=== PATIENT | female | born 1975 | race Caucasian/White ===

== ENCOUNTER 2022-03-28 12:44 | Outpatient (CLI) | payer BC, SELFPAY ==
--- OUTSIDE RECORDS SUMMARY | 2022-03-28 12:46 | XMS_ITS | Encounter Summary ---
:1975 Author Organization [facility] Address [address] [place] [address]. [place] [address] Care Team Providers Name Role Phone Golden Chowdary PA-C Primary Care Provider [phone] Golden Chowdary PA-C Unavailable [phone] Golden Chowdary PA-C Unavailable [phone] Reason for Visit Reason Onset Date Comments Panel Management 09/10/2016 pap Encounter Details Date Type Department Care Team Description 09/10/2016 [facility] Golden Chowdary Panel Management (pap) Clinic [place] DAI N[place]itt [address] [facility], [address] [place] [address] [address] [place] [address] [place], [place] [phone] (Wo rk) [address] [phone] Social History Tobacco Use Types Packs/Day Years Used Date Smoking Tobacco: Former Alcohol Use Standard Drinks/Week Comments Yes 0 (1 standard drink = 0.6 oz pure alcoho l) Sex Assigned at Date Recorded Not on file documented as of this encounter Miscellaneous Notes Telephone Encounter - Lawanda Ramirez - 09/24/2016 9:18 AM CDT 3rd attempt, letter sent. Bud Ramirez Branding Specialist 09/24/16 Telephone Encounter - Elyssa Ramires - 09/17/2016 11:45 AM CDT Second attempt, LM on home number to call back. KAIN Ndiaye Telephone Encounter - Jailyn Gurrola MA - 09/10/2016 1:25 PM CDT Panel Management Review Patient has the following on her problem list: None Composite cancer screening Chart review shows that this patient is due/due soon for the following Pap Smear Summary: Patient is due/failing the following: PAP Action needed: Patient needs office visit for pap. Type of outreach: Phone, left message for patient to call back. Questions for provider review: None Jailyn Gurrola MA Chart routed to Care Team . documented in this encounter Plan of Treatment Not on filedocumented as of this encounter Visit Diagnoses Not on filedocumented in this encounter Care Teams Operational Intelligence Officer Relationship Specialty Start Date End Date Golden Chowdary, PCP - General Physician Stadium Manager - 07/09/16 [facility] Golden Chowdary, PCP - Assigned PCP 10/18/15 08/10/18 DA[place] [id number] DOMINIC HUFFMAN [id number] Golden Chowdary, Assigned PCP 10/18/15 DA[place] [address] DOMINIC HUFFMAN [id number] documented as of this encounter
--- OUTSIDE RECORDS SUMMARY | 2022-03-28 12:46 | XMS_ITS | Clinical Summary ---
:1975 Author Organization [place] [facility] Address [address] [place] [address] Care Team Providers Name Role Phone Golden Chowdary PA-C Primary Care Provider [phone] Allergies Active Allergy Reactions Severity Noted Date Comments Sulfa Drugs 11/07/2015 Hands/lips numb ness Medications Medication Sig Dispensed Refills Start Date End Date Status LYRICA 75 MG capsule 0 06/03/2018 Active cyclobenzaprine Take 1 tablet 30 tablet 1 09/28/2018 Active (FLEXERIL) 10 MG (10 mg) by tabletIndications: Neck mouth 2 times pain daily as needed for muscle spasms Active Problems Problem Noted Date Neuropathy 09/28/2018 Neck pain 09/28/2018 CARDIOVASCULAR SCREENING; LDL GOAL LESS THAN 160 11/06 Immunizations Name Administration Dates Next Due DTAP (<7y) 10/10/1982, 11/25/1978, 1977, 1977, 1975 HepB 12/20/2008, 09/04/2005, 08/14/2004, 07/08/2004 Influenza (H1N1) 04/03/2009 MMR 07/08/2004, 08/26/1978 Poliovirus, inactivated (IPV) 07/08/2004, 10/10/1982, 1978, 1977, 1977, 1977 TD (ADULT, 7+) 12/22/2002, 05/08/2000 TDAP Vaccine (Adacel) 02/17/2006 Varicella Pt Report Hx of 09/10/2016 Varicella/Chicken Pox Family History Medical History Relation Comments Cerebrovascular Disease Father Heart Disease Father Other Cancer Father throat Relation Status Comments Father Alive Mother Alive Social History Tobacco Use Types Packs/Day Years Used Date Smoking Tobacco: Former Smokeless Tobacco: Former Alcohol Use Standard Drinks/Week Comments Yes 0 (1 standard drink = 0.6 oz pure alcoho l) Sex Assigned at Date Recorded Not on file Last Filed Vital Signs Vital Sign Reading Time Taken Comments Blood Pressure 102/66 09/28/2018 4:05 PM CDT Pulse 88 09/28/2018 4:05 PM CDT Temperature 37.3 ??C (99.1 ??F) 09/28/2018 4:05 PM CDT Respiratory Rate 16 09/28/2018 4:05 PM CDT Oxygen Saturation - - Inhaled Oxygen Concentration - - Weight 70.8 kg (156 lb) 09/28/2018 4:05 PM CDT Height 159.4 cm (5' 2.75) 11/07/2015 3:18 PM CDT Body Mass Index 27.85 11/07/2015 3:18 PM CDT Plan of Treatment Health Maintenance Due Date Last Done Comments ADVANCE CARE PLANNING 1975 ANNUAL REVIEW OF HM ORDERS 1975 YEARLY PREVENTIVE VISIT 1975 COVID-19 Vaccine (#1) 1975 HEPATITIS C SCREENING 1995 DTAP/TDAP/TD IMMUNIZATION 02/18/2016 02/17/2006, 12/22/2002 , (9 - Td or Tdap) 05/08/2000, Additional history exists PHQ-2 (once per calendar 06/08/2021 09/28/2018, 11/07/2015 year) INFLUENZA VACCINE (#1) 2022 04/03/2009 IPV IMMUNIZATION Completed 07/08/2004, 10/10/1982, 11/25/1978, Additional history exists HEPATITIS B IMMUNIZATION Completed 12/20/2008, 09/04/2005, 08/14/2004, Additional history exists HIV SCREENING Addressed 09/28/2018 (Declined) Overridden with the intention of not completing the t opic MENINGITIS IMMUNIZATION Aged Out No longe r eligible based on patient 's age to complete this topic PAP Discontinued Pneumococcal Vaccine: Aged Out No longer eligible Pediatrics (0 to 5 Years) based on patient's age and At-Risk Patients (6 to to co mplete this topic 64 Years) Insurance Payer Benefit Plan / Subscriber ID Effective Dates Phone Addre ss Type Group BCBS BCBS OUT OF [id number] 2014-Present [phone] [address] [address] [place] [address] Care Teams Window Unit Air Conditioning Mechanic Relationship Specialty Start Date End Date Golden Chowdary, PCP - General Physician 2Nd Grade Teacher - 07/09/16 PA-C Medical
--- OUTSIDE RECORDS SUMMARY | 2022-03-28 12:46 | XMS_ITS | Encounter Summary ---
:1975 Author Organization [facility] Address [address] [place] [address]. [place] [address] Care Team Providers Name Role Phone Golden Chowdary PA-C Primary Care Provider [phone] Golden Chowdary PA-C Unavailable [phone] Aldair Crawford MD Unavailable Reason for Visit Reason Onset Date Comments Appointment 09/28/2018 Encounter Details Date Type Department Care Team Description 09/28/2018 [facility] Golden Chowdary, Appointment [place] [address] [place] [address] [place] [address] [phone] Social History Tobacco Use Types Packs/Day Years Used Date Smoking Tobacco: Former Smokeless Tobacco: Former Alcohol Use Standard Drinks/Week Comments Yes 0 (1 standard drink = 0.6 oz pure alcoho l) Sex Assigned at Date Recorded Not on file documented as of this encounter Miscellaneous Notes Telephone Encounter - Prabhakar Erazo - 09/28/2018 5:04 PM CDT [facility] Phone Message May a detailed message be left on voicemail: yes Reason for Call: Symptoms or Concerns If patient has red-flag symptoms, warm transfer to triage line Current symptom or concern: Raynaud's Syndrome Symptoms have been present for: several month(s) Has patient previously been seen for this? Yes By [facility] PCP Date: Are there any new or worsening symptoms? Yes: Action Taken: Message routed [facility] Pt would like to be seen in [facility] for this - I explained the review process and that she will get a call for the intake, then at the end of the 3rd week will get a second call from the clinic to discuss. Records are in epic documented in this encounter Plan of Treatment Not on filedocumented as of this encounter Visit Diagnoses Not on filedocumented in this encounter Care Teams Power Hair Clipper Relationship Specialty Start Date End Date Golden Chowdary, PCP - General Physician Final Touch Up Painter - 07/09/16 [facility] Medical Golden Chowdary, Assigned PCP 10/18/15 DAI [address] DOMINIC HUFFMAN [id number] Aldair Crawford MD Assigned PCP 10/03/18 09/28/21 [address] DOMINIC HUFFMAN [id number] documented as of this encounter
--- OUTSIDE RECORDS SUMMARY | 2022-03-28 12:46 | XMS_ITS | Encounter Summary ---
:1975 Author Organization [facility] Address [address] [place] [address]. [place] [address] Care Team Providers Name Role Phone Golden Chowdary PA-C Unavailable [phone] Golden Chowdary PA-C Unavailable [phone] Reason for Visit Reason Onset Date Comments Panel Management 05/28/2016 pap Encounter Details Date Type Department Care Team Description 05/28/[address] [facility] [place] [place] Golden Chowdary Panel Management (pap) Clinic [place] DAI N[place] [id number] [place] [address] [place] [address] [place], [place] [phone] (Wo rk) [address] [phone] Social History Tobacco Use Types Packs/Day Years Used Date Smoking Tobacco: Former Alcohol Use Standard Drinks/Week Comments Yes 0 (1 standard drink = 0.6 oz pure alcoho l) Sex Assigned at Date Recorded Not on file documented as of this encounter Miscellaneous Notes Telephone Encounter - Lawanda Ramirez - 06/13/2016 9:46 AM WIND TURBINE SERVICE TECHNICIAN 3rd attempt, letter sent. Bud Ramirez Tandem Mill Sticker TURBINE SERVICE TECHNICIAN Telephone Encounter - Ivonne Kendall CMA - 06/06/2016 11:02 AM CST 2nd attempt Left message for patient to call the clinic back. Ivonne Kendall CMA TURBINE SERVICE TECHNICIAN Telephone Encounter - Jailyn Gurrola MA - 05/28/2016 11:00 AM CST Panel Management Review Patient has the following on her problem list: None Composite cancer screening Chart review shows that this patient is due/due soon for the following Pap Smear Summary: Patient is due/failing the following: PAP and PHYSICAL Action needed: Patient needs office visit for physical with pap. Type of outreach: Phone, left message for patient to call back. Questions for provider review: None Jailyn Gurrola MA Chart routed to Care Team . TURBINE SERVICE TECHNICIAN documented in this encounter Plan of Treatment Not on filedocumented as of this encounter Visit Diagnoses Not on filedocumented in this encounter Care Teams Tobacco Drying Machine Operator Relationship Specialty Start Date End Date Golden Chowdary PA-C PCP - Assigned PCP 10/18/15 08/10/18 [id number] DOMINIC HUFFMAN [address] Golden Chowdary PA-C Assigned PCP 10/18/15 10/02/18 [address] DOMINIC HUFFMAN [id number] documented as of this encounter
--- OUTSIDE RECORDS SUMMARY | 2022-03-28 12:46 | XMS_ITS | Encounter Summary ---
:1975 Author Organization [facility] Address [address] [place] [address] Care Team Providers Name Role Phone Golden Chowdary PA-C Primary Care Provider [phone] Golden Chowdary PA-C Unavailable [phone] Encounter Details Date Type Department Care Team Description 09/17/2018 Travel Social History Tobacco Use Types Packs/Day Years Used Date Smoking Tobacco: Former Alcohol Use Standard Drinks/Week Comments Yes 0 (1 standard drink = 0.6 oz pure alcoho l) Sex Assigned at Date Recorded Not on file documented as of this encounter Plan of Treatment Not on filedocumented as of this encounter Visit Diagnoses Not on filedocumented in this encounter Care Teams Poultry Eviscerator Relationship Specialty Start Date End Date Golden Chowdary, PCP - General Physician Network Technology Instructor - 07/09/16 DA[facility] Medical Golden Chowdary, Assigned PCP 10/18/15 DAI [address] [place] [address] documented as of this encounter
--- OUTSIDE RECORDS SUMMARY | 2022-03-28 12:46 | XMS_ITS | Encounter Summary ---
:1975 Author Organization [facility] Address [address] [place] [address] Care Team Providers Name Role Phone Golden Chowdary PA-C Primary Care Provider [phone] Golden Chowdary PA-C Unavailable [phone] Encounter Details Date Type Department Care Team Description 09/28/2018 Travel Social History Tobacco Use Types Packs/Day [...] on filedocumented in this encounter Care Teams Head Of Precision Targeting Relationship Specialty Start Date End Date Golden Chowdary, PCP - General Physician Mat Puncher - 07/09/16 DA[facility] Medical Golden Chowdary, Assigned PCP 10/18/15 DAI [address] [place] [address] documented as of this encounter
--- OUTSIDE RECORDS SUMMARY | 2022-03-28 12:46 | XMS_ITS | Encounter Summary ---
:1975 Author Organization [facility] Address [address] [place] [address] Care Team Providers Name Role Phone Golden Chowdary PA-C Primary Care Provider [phone] Aldair Crawford MD Unavailable Reason for Visit Reason Onset Date Comments Referral 10/12/2018 Talon cervantes MD Encounter Details Date Type Department Care Team Description 10/12/2018 Telephone [facility] Aldair Alamo Referral Rheumatology Clinic MD Boris (Talon [place] [address] WINN MAMI Crawford MD) [address] [place] [address] [place] [address] (Wo rk) [address] [phone] Social History Tobacco Use Types Packs/Day Years Used Date Smoking Tobacco: Former Smokeless Tobacco: Former Alcohol Use Standard Drinks/Week Comments Yes 0 (1 standard drink = 0.6 oz pure alcoho l) Sex Assigned at Date Recorded Not on file documented as of this encounter Miscellaneous Notes Telephone Encounter - Veronika Dorsey [facility] - 10/22/2018 10:49 AM CDT Final attempt to reach out to patient without success to complete the New Patient Intake process. Unfortunately, we are not able to move forward until the form is completed. If records have been received, they will be kept until 11/21/18. Anytime after 11/21/18, the patient will have to request those records again. Left a message of this information. Closing the referral request until we hear from the patient. Veronika Dorsey [facility] 10/22/2018 10:49 AM Telephone Encounter - Veronika Dorsey CMA - 10/12/2018 2:42 PM CDT Call was placed to patient regarding the referral without success. Message was left asking patient to call the clinic to discuss the referral. Awaiting a call back from the patient. Veronika Dorsey CMA 10/12/2018 2:43 PM documented in this encounter Plan of Treatment Not on filedocumented as of this encounter Visit Diagnoses Not on filedocumented in this encounter Care Teams Meter Shop Supervisor Relationship Specialty Start Date End Date Golden Chowdary, PCP - General Physician Drill Grinder - 07/09/16 PA-C Medical Aldair Crawford MD Assigned PCP 10/03/18 09/28/21 [address] [place] [address] documented as of this encounter
--- OUTSIDE RECORDS SUMMARY | 2022-03-28 12:46 | XMS_ITS | Encounter Summary ---
:1975 Author Organization [facility] Address [address] [place] [address]. [place] [address] Care Team Providers Name Role Phone Golden Chowdary PA-C Primary Care Provider [phone] Aldair Crawford MD Unavailable Reason for Visit Reason Comments Erroneous encounter-disregard Encounter Details Date Type Department Care Team Description 10/12/2018 [facility] [address] [place] [address] [phone] Social History Tobacco Use Types Packs/Day Years [...] on filedocumented in this encounter Care Teams Senior Actuarial Analyst Relationship Specialty Start Date End Date Golden Chowdary, PCP - General Physician Screw Machine Operator Swiss Type - 07/09/16 DA[facility] Medical Aldair Crawford MD Assigned PCP 10/03/18 09/28/21 [address] [facility] [place] [place] [address] documented as of this encounter
--- OUTSIDE RECORDS SUMMARY | 2022-03-28 12:46 | XMS_ITS | Encounter Summary ---
:1975 Author Organization [facility] Address [address] [place] [address] Care Team Providers Name Role Phone Golden Chowdary PA-C Unavailable [phone] Golden Chowdary PA-C Unavailable [phone] Reason for Visit Reason Onset Date Comments Path Results 11/22/2015 11/21/15 left breast biopsy Encounter Details Date Type Department Care Team Description 11/22/2015 [facility] Cristina Rooney Pat h Results (11/21/15 [facility] RN left breast biopsy) [address] [facility], [address] [place] [address] Social History Tobacco Use Types Packs/Day Years Used Date Smoking Tobacco: Former Alcohol Use Standard Drinks/Week Comments Yes 0 (1 standard drink = 0.6 oz pure alcoho l) Sex Assigned at Date Recorded Not on file documented as of this encounter Miscellaneous Notes Telephone Encounter - Cristina Rooney RN - 11/22/2015 1:47 PM CDT Left voice message for patient to return call regarding appointment on 11/21/15 and my return number:[phone] Patient returned call 11/21 Pathology report reviewed with breast radiologist Dr Bergeron. I informedpatient of results showing benign breast tissue in the 2 areas biopsied. No imaging follow up. Notify your doctor if any breast changes or concerns. Patient states no problems with biopsy site. Questions were answered and my phone number given if she has further questions or concerns. documented in this encounter Plan of Treatment Not on filedocumented as of this encounter Visit Diagnoses Not on filedocumented in this encounter Care Teams Credit Operations Processor Relationship Specialty Start Date End Date Golden Chowdary PA-C PCP - Assigned PCP 10/18/15 08/10/18 [address] DOMINIC HUFFMAN [address] Golden Chowdary PA-C Assigned PCP 10/18/15 10/02/18 [address] DOMINIC HUFFMAN [address] documented as of this encounter
--- OUTSIDE RECORDS SUMMARY | 2022-03-28 12:46 | XMS_ITS | Encounter Summary ---
:1975 Author Organization [facility] Address [address] [place] [address]. [place] [address] Care Team Providers Name Role Phone Golden Chowdary PA-C Primary Care Provider [phone] Golden Chowdary PA-C Unavailable [phone] Reason for Referral Consultation (Routine) - Closed Specialty Diagnoses / Procedures Referred By Contact Refer red To Contact Diagnoses Neuropathy Aldair Crawford MD PHYS [address] [facility]/[place] [address] [place] [address] [place] [address] Phone: [phone] Fax: Referral ID Status Reason Start Date Expiration Date Visits Requ ested Visits Authorized [id number] Closed 09/28/2018 09/28/2019 1 1 Reason for Visit Reason Comments Referral Rheumatology Encounter Details Date Type Department Care Team Description 09/28/2018 Office Visit [facility] Aldair Crawford Neuropath y (Primary Dx); Clinic Tsering Escalante MD Need for prophylactic vaccination with t etanus-diphtheria (Td); [place] [address] [address] [place] [address] Social History Tobacco Use Types Packs/Day Years Used Date Smoking Tobacco: Former Smokeless Tobacco: Former Alcohol Use Standard Drinks/Week Comments Yes 0 (1 standard drink = 0.6 oz pure alcoho l) Sex Assigned at Date Recorded Not on file documented as of this encounter Last Filed Vital Signs Vital Sign Reading Time Taken Comments Blood Pressure 102/66 09/28/2018 4:05 PM CDT Pulse 88 09/28/2018 4:05 PM CDT Temperature 37.3 ??C (99.1 ??F) 09/28/2018 4:05 PM CDT Respiratory Rate 16 09/28/2018 4:05 PM CDT Oxygen Saturation - - Inhaled Oxygen Concentration - - Weight 70.8 kg (156 lb) 09/28/2018 4:05 PM CDT Height - - Body Mass Index 27.85 11/07/2015 3:18 PM CDT documented in this encounter Progress Notes Aldair Crawford MD - 09/28/2018 4:00 PM CDT HPI SUBJECTIVE: Cassie Hill is a 43 year old female who presents to clinic today for the following health issues: Patient would is requesting a referral to Rheumatology 2016 diagnosed with idiopathic neuropathy at [facility], testing didn't reveal cause. Hands and feet, paths down arms and legs tingle. Recently developed white patch on feet (soles) that come and go and these spots would be completely numb. Calls this Raynauds. Has been to see neuro at [facility] and [facility] - extensive workup. Is not sure she's been investigated for leprosy, but feels [facility] did a pretty extensive workup. Is requesting referral to a specific traffic control officer. ROS Physical Exam (G62.9) Neuropathy (primary encounter diagnosis) Comment: does sound like she's had a pretty extensive w/u with [facility], will refer on to the U Plan: RHEUMATOLOGY REFERRAL (Z23) Need for prophylactic vaccination with tetanus-diphtheria (Td) Comment: Plan: las had 3y ago Greater than 50% of this 20 minute visit spent in counseling and coordination of care. RTC prn Aldair Crawford MD documented in this encounter Plan of Treatment Scheduled Referrals Name Type Priority Associated Diagnoses Order S chedule RHEUMATOLOGY REFERRAL Referral Routine Neuropathy Ordere d: 09/28/2018 documented as of this encounter Visit Diagnoses Diagnosis Neuropathy - Primary Mononeuritis of unspecified site Need for prophylactic vaccination with t etanus-diphtheria (Td) Neck pain Cervicalgia documented in this encounter Care Teams Uniform Patrol Police Officer Relationship Specialty Start Date End Date Golden Chowdary, PCP - General Physician Lock Assembler - 07/09/16 DAI Medical Golden Chowdary, Assigned PCP 10/18/15 DAI [address] [facility] [place] [address] documented as of this encounter
--- OUTSIDE RECORDS SUMMARY | 2022-03-28 12:46 | XMS_ITS | Encounter Summary ---
:1975 Author Organization [facility] Address [address] [place] [address]. [place] [address] Care Team Providers Name Role Phone Golden Chowdary PA-C Primary Care Provider [phone] Golden Chowdary PA-C Unavailable [phone] Golden Chowdary PA-C Unavailable [phone] Reason for Visit Reason Onset Date Comments Outreach 10/03/2016 [facility] att 1 Outreach 11/14/2016 Clinic made multiple attempts Encounter Details Date Type Department Care Team Description 10/03/2016 Telephone [facility] Golden Chowdary (PHS att 1); Clinic [place] DAI Nesbitt Outreach (Clinic made [address] [facility], [address] [place] [address] multiple attempts) [address] [place] [address] [place], [place] [phone] (Wo rk) [address] [phone] Social History Tobacco Use Types Packs/Day Years Used Date Smoking Tobacco: Former Alcohol Use Standard Drinks/Week Comments Yes 0 (1 standard drink = 0.6 oz pure alcoho l) Sex Assigned at Date Recorded Not on file documented as of this encounter Miscellaneous Notes Telephone Encounter - Alyce Zhou - 11/14/2016 2:41 PM CDT Clinic made multiple attempts Telephone Encounter - Lyndsay Hernandez - 10/03/2016 4:49 PM CDT 10/03/2016 Call Regarding Preventive Health Screening Cervical/PAP and Physical Attempt 1 Message on voicemail Comments: Outreach Apprentice Pattern Maker JCC documented in this encounter Plan of Treatment Not on filedocumented as of this encounter Visit Diagnoses Not on filedocumented in this encounter Care Teams Transit Mechanic Relationship Specialty Start Date End Date Golden Chowdary, PCP - General Physician Electrical Parts Reconditioner - 07/09/16 PAPauletteC Medical Golden Chowdary, PCP - Assigned PCP 10/18/15 08/10/18 DAI [address] DOMINIC HUFFMAN [id number] Golden Chowdary, Assigned PCP 10/18/15 DAI [address] DOMINIC HUFFMAN [id number] documented as of this encounter
--- OUTSIDE RECORDS SUMMARY | 2022-03-28 12:46 | XMS_ITS | Encounter Summary ---
:1975 Author Organization [facility] Address [address] [place] [address]. [place] [address] Care Team Providers Name Role Phone Golden Chowdary PA-C Primary Care Provider [phone] Aldair Crawford MD Unavailable Reason for Visit Reason Onset Date Comments Panel Management 10/29/2018 Encounter Details Date Type Department Care Team Description 10/29/2018 Telephone [facility] Aldair Crawford, Panel Management Tsering FIGUEROA [address] [place] [address] [place] [address] [place] [address] [phone] Social History Tobacco Use Types Packs/Day Years Used Date Smoking Tobacco: Former Smokeless Tobacco: Former Alcohol Use Standard Drinks/Week Comments Yes 0 (1 standard drink = 0.6 oz pure alcoho l) Sex Assigned at Date Recorded Not on file documented as of this encounter Miscellaneous Notes Telephone Encounter - Gwendolyn Soria CMA - 12/02/2018 11:11 AM CDT 2nd attempt, Left message to call clinic back. Gwendolyn Soria MA Telephone Encounter - Gwendolyn Soria CMA - 10/29/2018 2:54 PM CDT Panel Management Review Patient has the following on her problem list: None Composite cancer screening Chart review shows that this patient is due/due soon for the following Pap Smear Summary: Patient is due/failing the following: PAP and PHYSICAL Action needed: Patient needs office visit for pap an physical. Type of outreach: Phone, left message for patient to call back. Questions for provider review: None Gwendolyn Soria MA Chart routed to Care Team . documented in this encounter Plan of Treatment Not on filedocumented as of this encounter Visit Diagnoses Not on filedocumented in this encounter Care Teams Emr Specialist Relationship Specialty Start Date End Date Golden Chowdary, PCP - General Physician Concrete Placement Equipment Operator - 07/09/16 PA-C Medical Aldair Crawford MD Assigned PCP 10/03/18 09/28/21 [address] [address] [address] documented as of this encounter
--- OUTSIDE RECORDS SUMMARY | 2022-03-28 12:46 | XMS_ITS | Encounter Summary ---
:1975 Author Organization [facility] Address [address] [place] [address] Care Team Providers Name Role Phone Golden Chowdary PA-C Unavailable [phone] Golden Chowdary PA-C Unavailable [phone] Reason for Visit Reason Onset Date Comments Panel Management 02/21/2016 pap Encounter Details Date Type Department Care Team Description 02/21/2016 Telephone [facility] None [place] Management (pap) [address], [address] [place] [address] Social History Tobacco Use Types Packs/Day Years Used Date Smoking Tobacco: Former Alcohol Use Standard Drinks/Week Comments Yes 0 (1 standard drink = 0.6 oz pure alcoho l) Sex Assigned at Date Recorded Not on file documented as of this encounter Miscellaneous Notes Telephone Encounter - Lawanda Ramirez - 06/11/2016 8:25 AM CHIEF CLIENT OFFICER 3rd attempt, letter sent. Bud Ramirez Hot Sealing Machine Operator F CLIENT OFFICER Telephone Encounter - Lawanda Ramirez - 06/04/2016 12:32 PM CHIEF CLIENT OFFICER 2nd attempt, left message to call clinic. Bud Ramirez Hot Sealing Machine Operator F CLIENT OFFICER Telephone Encounter - Elyssa Ramires - 05/28/2016 11:16 AM CST First attempt, TB on home number. Elyssa Ramires XRT F CLIENT OFFICER Telephone Encounter - Golden Chowdary PA-C - 05/15/2016 11:17 AM CHIEF CLIENT OFFICER Please send PAP reminder. No need to add HM for mammo. rae Che F CLIENT OFFICER Telephone Encounter - Jailyn Gurrola MA - 02/21/2016 2:45 PM CDT Panel Management Review Patient has the following on her problem list: None Composite cancer screening Chart review shows that this patient is due/due soon for the following Pap Smear Summary: Patient is due/failing the following: PAP and PHYSICAL Action needed: Patient needs office visit for physical with pap. Type of outreach: None, routed to provider for review. Questions for provider review: She has had a mammogram for breast lump, do we need to add Mammogram to her health maintenance now? And if so how often does she need one. Jailyn Gurrola MA Chart routed to Provider . documented in this encounter Plan of Treatment Not on filedocumented as of this encounter Visit Diagnoses Not on filedocumented in this encounter Care Teams Health Care Sanitary Technician Relationship Specialty Start Date End Date Golden Chowdary PA-C PCP - Assigned PCP 10/18/15 08/10/18 [id number] DOMINIC HUFFMAN [id number] Golden Chowdary PA-C Assigned PCP 10/18/15 10/02/18 [address] DOMIN[address] HUFFMAN [id number] documented as of this encounter
--- OUTSIDE RECORDS SUMMARY | 2022-03-28 12:47 | XMS_ITS | Encounter Summary ---
:1975 Author Organization [facility] Address [address] [place] [address]. [place] [address] Care Team Providers Name Role Phone Golden Chowdary PA-C Unavailable [phone] Golden Chowdary PA-C Unavailable [phone] Reason for Visit (Routine) - Closed Specialty Diagnoses / Procedures Referred By Contact Refer red To Contact Radiology / Radiology. Diagnoses Prev 11yrs ago [facility] Procedures MA DIAGNOSTIC BILAT W/ JOVAN [address], [address] [place] [address] Phone: Fax: Referral ID Status Reason Start Date Expiration Date Visits Requ ested Visits Authorized [id number] Closed 11/08/2015 11/07/2016 1 1 Encounter Details Date Type Department Care Team Description 11/12/2015 Hospital Encounter [facility] Golden Chowdary Breast lump [facility] DAI Nesbitt [address], [address] [facility] [address] [place] [address] [place], [place] [phone] (Wo rk) [phone] [phone] Social History Tobacco Use Types Packs/Day Years Used Date Smoking Tobacco: Former Alcohol Use Standard Drinks/Week Comments Yes 0 (1 standard drink = 0.6 oz pure alcoho l) Sex Assigned at Date Recorded Not on file documented as of this encounter Plan of Treatment Not on filedocumented as of this encounter Procedures Procedure Name Priority Date/Time Associated Comments Diagnosis MA DIAGNOSTIC Routine 11/12/2015 3:37 PM Breast lump Results for this BILATERAL W/ JOVAN CDT procedure are in the results section. documented in this encounter Results MA Diagnostic Bilateral w/Jovan (11/12/2015 3:37 PM CDT) Anatomical Region Laterality Modality Breast Bilateral Mammography Specimen (Source) Anatomical Location Collection Method / Collectio n Time Received Time / Laterality Volume Addenda Addendum by Andrey Bergeron MD on 12/24/2015 7:21 AM CDT ALESSANDRO HILL [id number] The original report on this patient was dictated by myself. ?? Prior mammograms from [facility] dated 08/25/12 have been made available for comparison. Findings: No significant interval change on mammography. Subsequent biopsies were based on ultras ound findings. ANDREY BERGERON MD (Date of Addendum: 12/06 7:19 AM) ?? ANDREY BERGERON MD Addendum by Andrey Bergeron MD on 12/24/2015 7:21 AM CDT ALESSANDRO HILL [id number] The original report on this patient was dictated by myself. ?? Prior mammograms from [facility] dated 08/25/12 have been made available for comparison. Findings: No significant interval change on mammography. Subsequent biopsies were based on ultras ound findings. ANDREY BERGERON MD (Date of Addendum: 12/06 7:19 AM) ?? ANDREY BERGERON MD Addendum by Andrey Bergeron MD on 11/15/2015 3:36 PM CDT ALESSANDRO HILL [id number] The original report on this patient was dictated by myself. ?? Prior outside mammogram and right breast ultrasound from 08/25/2012 from [facility] have been made available for comparison. The right breast mass was previously doc umented on ultrasound and appears not significantly changed, consi dered benign. The two left-sided masses were not defin itely visualized previously and require biopsy. IMPRESSION: Category 4. Suspicious findi ngs. Biopsy should be considered. RECOMMENDATION: Biopsy of two left breas t masses. ANDREY BERGERON MD (Date of Addendum: 11/14 2:15 PM) ANDREY BERGERON MD Addendum by Andrey Bergeron MD on 11/15/2015 3:36 PM CDT ALESSANDRO H[facility] [id number] The original report on this patient was dictated by myself. ?? Prior outside mammogram and right breast ultrasound from 08/25/2012 from [facility] have been made available for comparison. The right breast mass was previously doc umented on ultrasound and appears not significantly changed, consi dered benign. The two left-sided masses were not defin itely visualized previously and require biopsy. IMPRESSION: Category 4. Suspicious findi ngs. Biopsy should be considered. RECOMMENDATION: Biopsy of two left breas t masses. ANDREY BERGERON MD (Date of Addendum: 11/14 2:15 PM) ANDREY BERGERON MD Impressions 11/12/2015 4:32 PM CDT IMPRESSION: BI-RADS CATEGORY: 0 - Need Additional Imaging Evaluation and/or Prior Mammograms for Comparison RECOMMENDED FOLLOW-UP: Obtain Prior Exam for Comparison ANDREY BERGERON MD Narrative 11/12/2015 4:32 PM CDT DIAGNOSTIC MAMMOGRAM BILATERAL DIGITAL w/CAD w/TOMOSYNTHESIS; ULTRASOUND BILATERAL BREAST ??11/12/2015. HISTORY: Pain and lumpiness in the later al left breast for approximately 6-7 months. COMPARISON: Prior mammograms at [place], [place], not available at the time of this exam. BREAST DENSITY: Heterogeneously dense FINDINGS: No mammographic or sonographic abnormality identified in the region of pain and lumpiness at 1-2 o'cl ock in the left breast, 12 cm from the nipple. Any further evaluation should be based on clinical findings and clinical suspicion. Left: Two nodular circumscribed asymmetr ies are identified in the lower left breast on mammography. Ultras ound at 5 o'clock 6 cm from the nipple demonstrates a 0.6 x 0.3 x 0. 5 cm hypoechoic circumscribed parallel mass. A second similar-appearin g mass is identified at 5:30, 3 cm from the nipple and measures 0.8 x 0.4 x 0.8 cm. Right: One circumscribed asymmetry is lo cated in the upper medial right breast on mammography. Ultrasound at 1:30/2 o'clock 6 cm from the nipple in the right breast demonstra angela a 0.8 x 0.5 x 0.9 cm smoothly marginated hypoechoic mass, cor responding with the mammographic abnormality. All three masses have benign characteris tics, but are indeterminate. Comparison with prior mammograms would b e helpful to confirm stability. If mammograms cannot be obtai conner and/or stability confirmed, ultrasound-guided biopsy is r ecommended of all three lesions. Golden Chowdary PA-C IMG MAMMOGRAPHY ORDERABLES documented in this encounter Visit Diagnoses Diagnosis Breast lump Lump or mass in breast documented in this encounter Care Teams Risk Reduction Counselor Relationship Specialty Start Date End Date Golden Chowdary PA-C PCP - Assigned PCP 10/18/15 08/10/18 [id number] DOMINIC HUFFMAN [id number] Golden Chowdary PA-C Assigned PCP 10/18/15 10/02/18 [address] DOMINIC HUFFMAN [address] documented as of this encounter
--- OUTSIDE RECORDS SUMMARY | 2022-03-28 12:47 | XMS_ITS | Encounter Summary ---
:1975 Author Organization [facility] Address [address] [place] [address]. [place] [address] Care Team Providers Name Role Phone Golden Chowdary PA-C Unavailable [phone] Golden Chowdary PA-C Unavailable [phone] Reason for Visit (Routine) - Closed Specialty Diagnoses / Procedures Referred By Contact Refer red To Contact Radiology / Diagnoses EPIC order, Rh Ultrasound Breast Radiology. Procedures US BREAST BX CORE NDL ADD LT [address], [address] [place] [address] Phone: Referral ID Status Reason Start Date Expiration Date Visits Requ ested Visits Authorized [id number] Closed 11/16/2015 11/15/2016 1 1 Encounter Details Date Type Department Care Team Description 11/21/[address] [facility] Golden Chowdary Mass of multiple [place] Breast DAI Nesbitt sites of left breast Center [address] [address] [address], [address] [place] [address] Social History Tobacco Use Types Packs/Day Years Used Date Smoking Tobacco: Former Alcohol Use Standard Drinks/Week Comments Yes 0 (1 standard drink = 0.6 oz pure alcoho l) Sex Assigned at Date Recorded Not on file documented as of this encounter Plan of Treatment Not on filedocumented as of this encounter Procedures Procedure Name Priority Date/Time Associated Diagnosis Comme nts US BREAST BIOPSY Routine 11/21/2015 9:24 AM Mass of multiple R esults for this CORE NEEDLE, EA CDT sites of left breast proc edure are in ADDL LESION LEFT the results section. documented in this encounter Results Us Breast Biopsy Core Needle, Ea Addl Lesion Left (11/21/2015 9:24 AM CDT) Anatomical Region Laterality Modality Breast Ultrasound Specimen (Source) Anatomical Location Collection Method / Collectio n Time Received Time / Laterality Volume Addenda Addendum by Moises Hogue MD on 11/07 7:10 AM CDT Pathology results: Benign. ?. See fu ll path report. Results are concordant with imaging. Recommendation: Routine screening. MOISES HOGUE MD Narrative 11/21/2015 9:41 AM CDT US BREAST BIOPSY CORE NEEDLE LEFT, US BREAST BIOPSY CORE NEEDLE, EA ADDL LESION LEFT, MA POST PROCEDURE LEFT 11/21/2015 9:24 AM HISTORY: ??Unspecified lump in breast PREPROCEDURE DIAGNOSIS: Indeterminant br east lesion CONSENT: The risks and benefits were dis cussed with the patient. The patient agreed to have the procedure. TECHNIQUE: Using sterile technique, loca l anesthesia was given using 5cc of 1% Lidocaine. Ultrasound guidance , and a 14 gauge needle was used to biopsy the 2 indeterminant sites in the left breast.. Five biopsy samples of each suspicious lesion were obtained for the lab. A Coil was placed at the 5:30, 3 cm biopsy site. A ribbon clip was placed at the 5:00 6 cm biopsy site. Pos tprocedural mammogram shows the marker in position. Less than 5cc of blood loss during the p rocedure. No significant pain at the end of the procedure. The patient left the department in satisfactory condition. POSTPROCEDURE DIAGNOSIS: Indeterminant b reast lesion MOISES HOGUE MD Procedure Note Moises Hogue MD - 11/21/2015Formatt ing of this note might be different from the original. US BREAST BIOPSY CORE NEEDLE LEFT, US BR EAST BIOPSY CORE NEEDLE, EA ADDL LESION LEFT, MA POST PROCEDURE LEFT 11/21/2015 9:24 AM HISTORY: Unspecified lump in breast PREPROCEDURE DIAGNOSIS: Indeterminant br east lesion CONSENT: The risks and benefits were dis cussed with the patient. The patient agreed to have the procedure. TECHNIQUE: Using sterile technique, loca l anesthesia was given using 5cc of 1% Lidocaine. Ultrasound guidance , and a 14 gauge needle was used to biopsy the 2 indeterminant sites in the left breast.. Five biopsy samples of each suspicious lesion were obtained for the lab. A Coil was placed at the 5:30, 3 cm biopsy site. A ribbon clip was placed at the 5:00 6 cm biopsy site. Pos tprocedural mammogram shows the marker in position. Less than 5cc of blood loss during the p rocedure. No significant pain at the end of the procedure. The patient left the department in satisfactory condition. POSTPROCEDURE DIAGNOSIS: Indeterminant b reast lesion MOISES HOGUE MD Golden Chowdary PA-C IMG US ORDERABLES documented in this encounter Visit Diagnoses Diagnosis Mass of multiple sites of left breast Lump or mass in breast documented in this encounter Care Teams Homeland Security Program Specialist Relationship Specialty Start Date End Date Golden Chowdary PA-C PCP - Assigned PCP 10/18/15 08/10/18 [id number] DOMINIC HUFFMAN [id number] Golden Chowdary PA-C Assigned PCP 10/18/15 10/02/18 [id number] DOMINIC HUFFMAN [id number] documented as of this encounter
--- OUTSIDE RECORDS SUMMARY | 2022-03-28 12:47 | XMS_ITS | Clinical Summary ---
:1975 Author Organization [facility] [place] [address] Care Team Providers Name Role Phone Marcie Nation PA-C Primary Care Provider Allergies Active Allergy Reactions Severity Noted Date Comments Sulfa (Sulfonamide Antibiotics) *Unknown 6 Hands/lips numbness Medications Medication Sig Dispensed Refills Start Date End Date Status zolpidem (AMBIEN) 5 Take 5 mg by mouth 0 01/27/2020 Active mg tablet at bedtime if needed. cyclobenzaprine Take 10 mg by mouth 0 05/18/2020 Active (FLEXERIL) 10 mg at bedtime if tablet needed. pregabalin (LYRICA) Take 75 mg by mouth 0 Active 75 mg capsule 2 times daily. acetaminophen Take 500-1,000 mg 0 Active (TYLENOL EXTRA by mouth every 6 STRGTH) 500 mg tablet hours if needed (pain). Max acetaminophen dose: 4000mg in 24 hrs. ondansetron (ZOFRAN Place 1 tablet on 30 Tablet 0 08/18/2020 Active ODT) 4 mg the tongue every 6 disintegrating hours if needed. tabletIndications: Nausea sennosides (SENNA) Take 1-2 tablets by 30 Tablet 0 08/18/2020 Active 8.6 mg mouth 2 times daily tabletIndications: if needed. Constipation, unspecified constipation type HYDROmorphone Take one-half to 30 Tablet 0 09/01/2020 Active (DILAUDID) 4 mg one and one-half tabletIndications: tablets (2-6 mg) by Acute post-operative mouth every 4 hours pain if needed for Pain. methocarbamoL Take 1 Tablet (750 30 Tablet 0 09/01/2020 Active (ROBAXIN) 750 mg mg) by mouth every tabletIndications: 6 hours if needed. Acute post-operative pain HYDROcodone-acetamino Take 1 Tablet by 10 Tablet 0 08/18/2021 Active phen (NORCO) 5-325 mg mouth every 6 hours per if needed for Pain. 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 Not asked How many drinks containing alcohol do you have on a typical Not asked day when you are drinking? How often do you have six or more drinks on one occasion? No t asked Comment: Social 08/29/2020 Sex Assigned at Date Recorded Not on file Obstetrics History Last Filed Vital Signs Vital Sign Reading Time Taken Comments Blood Pressure 146/94 08/18/2021 11:15 AM CDT Pulse 109 08/18/2021 11:15 AM CDT Temperature 36.8 ??C (98.2 ??F) 08/18/2021 11:15 AM CDT Respiratory Rate 20 08/18/2021 11:15 AM CDT Oxygen Saturation 98% 08/18/2021 11:15 AM CDT Inhaled Oxygen Concentration - - Weight 93.4 kg (206 lb) 08/18/2021 11:15 AM CDT Height 160 cm (5' 3) 08/18/2021 11:15 AM CDT Body Mass Index 36.49 08/18/2021 11:15 AM CDT Plan of Treatment Health Maintenance Due Date Last Done Comments Tdap 1988 Depression screening for age 12+ 1989 BMI (ht and wt on same day) for age 18+ 1995 Hepatitis C screening for age 18-79 1995 Tetanus booster 1997 Pap test for age 21-65 1998 COVID-19 vaccine series (2 - Booster for [place] 04/17/2021 02/20/2021 series) Influenza for age 9-49 02/06/2022 Medical Devices Implanted Type Area Thread Puller Device Shelf Model / Identifier Expiration Serial / Lot Date Stent Uret [id number] Contour - [id number] Left: BSC Urolo gy [id number] / Implanted: Qty: 1 on 08/13/2020 by Soren Mitchell MD at [facility] Ureter / [id number] Results Not on filefrom Last 3 Months Insurance Payer Benefit Plan / Subscriber ID Effective Dates Phone Addre ss Type Group BLUE CROSS BLUE CROSS OF [id number] 2021-Present [address] [address] [place] [id number] (Home) W [phone] [place], [place] (Work) [phone] Advance Directives Latest Code Status on File Code Status Date Activated Date Inactivated Comments Full Code 08/30/2020 10:05 AM 09/01/2020 4:15 PM Code Status Discussion: Not Discussed Full Code 08/13/2020 2:08 AM 08/18/2020 4:43 PM Code Status Discussion: Discussed Care Teams Dragline Operator Helper Relationship Specialty Start Date End Date Marcie Nation, WILFREDOC PCP - General Physician Optical Glass Etcher 08/13/20 [address] [place], [place] [id number]
--- OUTSIDE RECORDS SUMMARY | 2022-03-28 12:47 | XMS_ITS | Encounter Summary ---
:1975 Author Organization [facility] Address [address] [place] [address]. [place] [address] Care Team Providers Name Role Phone Golden Sol PA-C Unavailable [phone] Golden Sol PA-C Unavailable [phone] Reason for Visit (Routine) - Closed Specialty Diagnoses / Procedures Referred By Contact Refer red To Contact Radiology / Diagnoses EPIC order, Rh Ultrasound Breast Radiology. Procedures US BREAST BX CORE NEEDLE LEFT [address], [address] [place] [address] Phone: Referral ID Status Reason Start Date Expiration Date Visits Requ ested Visits Authorized [id number] Closed 11/16/2015 11/15/2016 1 1 Encounter Details Date Type Department Care Team Description 11/21/2015 Hospital Encounter [facility] Bud Solis Mass of multiple [place] Breast DAI Nesbitt sites of left breast Center [id number] [address], [address] [place] [phone] Social History Tobacco Use Types Packs/Day Years Used Date Smoking Tobacco: Former Alcohol Use Standard Drinks/Week Comments Yes 0 (1 standard drink = 0.6 oz pure alcoho l) Sex Assigned at Date Recorded Not on file documented as of this encounter Discharge Instructions Discharge Cristina Hale RN - 11/21/2015 9:52 AM CDT After Your Breast Biopsy Bleeding or bruising: Slight bruising is normal. If you bleed through the bandage, put direct pressure on the breast. If you are still bleeding after 20 minutes, call the doctor who ordered the exam. Bandages: Keep your bandage in place until tomorrow morning. Do not get it wet. Leave the tape in place for two days. On the second day, cover it with a Band-Aid. Activity: You may shower the morning after the exam. No heavy activity (lifting, vacuuming) for 24 hours. Discomfort: Wear your bra overnight to support the breast. You may take Tylenol (acetaminophen) for pain. If you had a stereotactic of MR-directed biopsy, you may take aspirin or ibuprofen (Advil, Motrin) the morning after your biopsy, unless your doctor tells you not to. Infection: Infection is rare. Symptoms include fever, redness, increasing pain and fluid draining from the biopsy site. If you have any of these symptoms, please call the doctor who ordered your exam. Results: Results may take up to three business days. If you have not heard your results in three days, {CALL [phone] In rare cases, we may need to do another biopsy. Call the doctor who ordered your exam if: ?? You have bleeding that lasts more than 20 minutes. ?? You have pain that cannot be controlled. ?? You have signs of infection (fever, redness, drainage or other signs). ?? You have not had your results within three days. Nurse navigator: Our nurse navigator is here to answer your questions and help you set up future clinic visits. Please call [phone] Thank you for choosing [facility]. Please call us if you have questions or concerns about your biopsy. documented in this encounter Plan of Treatment Not on filedocumented as of this encounter Procedures Procedure Name Priority Date/Time Associated Diagnosis Comme nts US BREAST BIOPSY Routine 11/21/2015 9:24 AM Mass of multiple R esults for this CORE NEEDLE LEFT CDT sites of left breast pro cedure are in the results section. SURGICAL PATHOLOGY Routine 11/21/2015 9:13 AM Res ults for this EXAM CDT procedure are i n the results section. documented in this encounter Results US Breast Biopsy Core Needle, 1St Lesion Left (11/21/2015 9:24 AM CDT) Anatomical Region Laterality Modality Breast Left Ultrasound Specimen (Source) Anatomical Location Collection Method [...] b reast lesion MOISES HOGUE MD Golden Sol PA-Eduarda IMG US ORDERABLES Surgical Path Exam (11/21/2015 9:13 AM CDT) Component Value Ref Test Analysis Performed Pathologis t Range Method Time At Signature Copath Patient Name: ALESSANDRO HILL PATH Report MR#: [id number] Specimen #: [id number] Collected: 11/21/2015 Received: 11/21/2015 Reported: 11/22/2015 12:51 Ordering Phy(s): GOLDEN SOL SPECIMEN(S): A: Left ultrasound guided breast needle biopsy, 5:00, 6cm FN B: Left ultrasound guided breast needle biopsy, 5:30, 3cm FN FINAL DIAGNOSIS: A: Breast, left, 5:00, 6 cm from nipple, ultrasound guided n eedle core biopsy. - Adipose tissue only. ??No breast epithelial elements ident ified to evaluate. - No microcalcifications identified. - See microscopic description. B: Breast, left, 5:30, 3 cm from nipple, ultrasound guided n eedle core biopsy. - Small focus suggestive of fibroadenoma. - No microcalcifications identified. - Negative for atypia and malignancy. - See microscopic description. Electronically signed out by: Moises Armstrong M.D. CLINICAL HISTORY: Left breast mass, index of suspicion-low to intermediate. ?? 5:00 area of 0.6 x 0.3 x 0.5 cm. ??5:30 area of 0.8 x 0.4 x 0.8 cm. GROSS: A: ??The specimen is received in formalin labeled with the p atient's name, identifying information and left breast ultrasound bi opsy, 5:00, 6 cm FN. ??It consists of multiple friable luke fibrofatty t issue fragments, aggregating to 0.7 x 0.5 x 0.4 cm. ??Submitted en tirely in 1 block. B: ??The specimen is received in formalin labeled with the p atient's name, identifying information and left breast ultrasound bi opsy, 5:30, 3 cm FN. ??It consists of two luke-yellow fibrofatty tissue cores admixed with smaller fragments, aggregating to 1.5 x 0.3 x 0.2 cm. ? ?Submitted entirely in 1 block. (Dictated by: Marques Rosario 11/21/2015 1 1:47 AM) MICROSCOPIC: A: Initial levels show only adipose tissue. ??Additional cali per recut slide levels were also evaluated and are similar. ??No breas t epithelial elements are seen to evaluate. ??No specific lesion is ident ified. Clinical and imaging correlation is required to determine wh ether the samples are agency sales representative of the area of interest. B:. ??There are a few small fragments suggestive of fibroade noma. ??The majority of the biopsy sample does not show specific finding s. ??Clinical and imaging correlation is required to determine whether the samples are agency sales representative of the area of interest. Case internally consulted with an additional pathologist who concurs. CPT Codes: A: 41991-IG8 B: 46135-BP6 TESTING LAB LOCATION: [address] ??[address] COLLECTION SITE: Client: [facility] Location: RHBCUS (R) Specimen Anatomical Collection Method Collection Time Receive d Time (Source) Location / / Volume Laterality Specimen from 11/21/2015 9:13 AM 11/21/19 16 breast CDT 11:03 AM CDT (specimen) Golden DUMONT Performing Organization Address City/State/ZIP Code Phon e Number COPATH documented in this encounter Visit Diagnoses Diagnosis Mass of multiple sites of left breast Lump or mass in breast documented in this encounter Administered Medications Inactive Administered Medications - up to 3 most recent administrations Medication Order MAR Action Action Date Dose Rate Site Lidocaine 1 % injection 12 mL Given 11/21/2015 9:24 AM CDT 12 mLs 12 mL, Subcutaneous, ONCE, On Thu11/21/15 at 0900, For 1 dose documented in this encounter Care Teams Account Manager Forest [employer] Relationship Specialty Start Date End Date Golden Sol PA-C PCP - Assigned PCP 5/12/16 3/5/19 [id number] EDGARD REDMOND, DOMINIC [id number] Golden Sol PA-C Assigned PCP 10/18/15 10/02/18 [id number] DOMINIC HUFFMAN [id number] documented as of this encounter
--- OUTSIDE RECORDS SUMMARY | 2022-03-28 12:47 | XMS_ITS | Encounter Summary ---
:1975 Author Organization [facility] Address [address] [place] [address]. [place] [address] Care Team Providers Name Role Phone Golden Chowdary PA-C Unavailable [phone] Golden Chowdary PA-C Unavailable [phone] Reason for Visit Reason Onset Date Comments Results 11/13/2015 Mammogram Encounter Details Date Type Department Care Team Description 11/13/2015 Telephone [facility] Golden Chowdary Result s (Mammogram) Clinic [place] DAI Nesbitt [id number] [place] [address] [address] [place] [address] [place], [place] [phone] (Wo rk) [address] [phone] Social History Tobacco Use Types Packs/Day Years Used Date Smoking Tobacco: Former Alcohol Use Standard Drinks/Week Comments Yes 0 (1 standard drink = 0.6 oz pure alcoho l) Sex Assigned at Date Recorded Not on file documented as of this encounter Miscellaneous Notes Telephone Encounter - Radha Garcia RN - 11/15/2015 4:12 PM CDT Andrey Bergeron MD ?? Jumana Nov 15, 2015 ??3:36:51 PM CDT ? ALESSANDRO HILL [id number] ?? The original report on this patient was dictated by myself.? Prior outside mammogram and right breast ultrasound from 08/25/2012 from [facility] have been made available for comparison. ?? The right breast mass was previously documented on ultrasound and appears not significantly changed, considered benign. ?? The two left-sided masses were not definitely visualized previously and require biopsy. ?? IMPRESSION: Category 4. Suspicious findings. Biopsy should be considered. ?? RECOMMENDATION: Biopsy of two left breast masses. ?? ANDREY BERGERON MD (Date of Addendum: 11/15/2015 2:15 PM) ?? ANDREY BERGERON MD ? Andrey Bergeron MD ?? Jumana Nov 15, 2015 ??3:36:51 PM CDT Patient returned phone call. Information just finished reporting. Patient notified. She will call the breast center. Orders placed. Radha Garcia RN Telephone Encounter - Radha Garcia RN - 11/13/2015 5:43 PM CDT Notes Recorded by Golden Chowdary PA-C on 11/13/2015 at 3:31 PM Can we call to see where she is at with this. ??Either needs follow up appointment or to obtain prior mammograms. IMPRESSION: BI-RADS CATEGORY: 0 - Need Additional Imaging Evaluation and/or Prior Mammograms for Comparison ?? RECOMMENDED FOLLOW-UP: Obtain Prior Exam for Comparison Telephone Encounter - Jailyn Gurrola MA - 11/13/2015 5:25 PM CDT LMTCB to clinic. Re: mammogram results. Please see note from Golden. Jailyn Gurrola MA documented in this encounter Plan of Treatment Not on filedocumented as of this encounter Results Us Breast Biopsy Core Needle, Ea Addl Lesion Left (11/21/2015 9:24 AM CDT) Anatomical Region Laterality Modality Breast Ultrasound Specimen (Source) Anatomical Location Collection Method / Collectio n Time Received Time / Laterality Volume Addenda Addendum by Durga Hogue MD on 11/07 7:10 AM CDT Pathology results: Benign. ?. See fu ll path report. Results are concordant with imaging. Recommendation: Routine screening. DURGA HOGUE MD Narrative 11/21/2015 9:41 AM CDT [...] condition. POSTPROCEDURE DIAGNOSIS: Indeterminant b reast lesion DURGA HOGUE MD Procedure Note Durga Hogue MD - 11/21/2015Formatt ing of this [...] condition. POSTPROCEDURE DIAGNOSIS: Indeterminant b reast lesion DURGA HOGUE MD Golden Chowdary PA-C IMAntonio US ORDERABLES US Breast Biopsy Core Needle, 1St Lesion Left (11/21/2015 9:24 AM CDT) Anatomical Region Laterality Modality Breast Left Ultrasound Specimen (Source) Anatomical Location Collection Method / Collectio n Time Received Time / Laterality Volume Addenda Addendum by Durga Hogue MD on 11/07 7:10 AM CDT Pathology results: Benign. ?. See fu ll path report. Results are concordant with imaging. Recommendation: Routine screening. DURGA HOGUE MD Narrative 11/21/2015 9:41 AM CDT [...] condition. POSTPROCEDURE DIAGNOSIS: Indeterminant b reast lesion DURGA HOGUE MD Procedure Note Durga Hogue MD - 11/21/2015Formatt ing of this [...] condition. POSTPROCEDURE DIAGNOSIS: Indeterminant b reast lesion DURGA HOGUE MD Golden Chowdary PA-C IMG US ORDERABLES documented in this encounter Visit Diagnoses Diagnosis Mass of multiple sites of left breast - Primary Lump or mass in breast Mass of multiple sites of left breast Lump or mass in breast Mass of multiple sites of left breast Lump or mass in breast documented in this encounter Care Teams Block Cuber Relationship Specialty Start Date End Date Golden Chowdary PA-C PCP - Assigned PCP 10/18/15 08/10/18 [id number] DOMINIC HUFFMAN [id number] Golden Chowdary PA-C Assigned PCP 10/18/15 10/02/18 [id number] DOMINIC HUFFMAN [id number] documented as of this encounter
--- OUTSIDE RECORDS SUMMARY | 2022-03-28 12:47 | XMS_ITS ---
:1975 Author Care Team Providers Name Role Phone AMY SAMSON FONTENOT Primary Care Provider [phone] Allergies Code Code System Name Reaction Severity Status Onset Sulfa (Sulfonamide Antibiotics) ? ? Active ? Medications Name Status Start Date Stop Date ? ? amitriptyline 10 mg tablet Active ? Not a vailable TAKE 1 TABLET ORALLY EVERY DAY AT BEDTIME. amitriptyline 25 mg tablet Active ? Not a vailable TAKE 1 TABLET BY MOUTH DAILY AT BEDTIME. amoxicillin 875 mg tablet Active ? Not av ailable azithromycin 250 mg tablet Active ? Not a vailable TAKE 1-2 TABLETS BY MOUTH DIRECTED. 2 TABLETS ON DAY 1 THEN 1 TABLET DAILY FOR 4 MORE DAYS benzonatate 100 mg capsule Active ? Not a vailable TAKE 1 TABLET BY MOUTH 3 TIMES A DAY NEEDED cephalexin 500 mg capsule Active ? Not av ailable ciprofloxacin 250 mg tablet Active ? Not available codeine 10 mg-guaifenesin 100 mg/5 mL oral liquid Active ? Not available TAKE 5 ML BY MOUTH EVERY 6 HOURS cyclobenzaprine 10 mg tablet Active ? Not available TAKE 1 TABLET BY MOUTH 3 TIMES DAILY NEEDED Enema Disposable 19 gram-7 gram/118 mL Active ? Not available 59 ML RECTALLY ONCE. ADMINISTER HALF THE ENEMA AT 6PM THE DAY PRIOR TO SURGERY erythromycin 500 mg tablet Active ? Not a vailable 1 TABLET ORALLY PER PACKAGE DIRECTIONS. TAKE 1 TABLET AT 1PM, 3PM, AND 7PM THE DAY PRIOR TO SURGERY estradiol 2 mg tablet Active ? Not availa ble TAKE 1 TABLET BY MOUTH DAILY Gentle Laxative (bisacodyl) 5 mg tablet,delayed release Active ? Not available 1 TABLET,DELAYED RELEASE (DR/EC) ORALLY ONCE. TAKE 2 TABLETS AT 1PM THE DAY PRIOR TO SURGERY hers 20ml antiageaz lo Active ? Not avail able Apply 1 pump to face nightly hydrocodone 5 mg-acetaminophen 325 mg tablet Active ? Not available TAKE 1-2 TABLETS BY MOUTH EVERY 4 HOURS NEEDED FOR PAIN. hydromorphone 2 mg tablet Active ? Not av ailable hydromorphone 4 mg tablet Active ? Not av ailable levofloxacin 250 mg tablet Active ? Not a vailable TAKE 1 TABLET BY MOUTH EVERY DAY methocarbamol 750 mg tablet Active ? Not available neomycin 500 mg tablet Active ? Not avail able TAKE 1 TABLET BY MOUTH AT 1PM, 3PM, AND 7PM THE DAY PRIOR TO SANCHEZ RGERY ondansetron 4 mg disintegrating tablet Active ? Not available ondansetron 8 mg disintegrating tablet Active ? Not available TAKE 1 TABLET,DISINTEGRATING ORALLY GERMAIN RY 8 HOURS NEEDED FOR NAUSEA AND VOMITING. phentermine 37.5 mg tablet Active ? Not a vailable TAKE 1 TABLET BY MOUTH DAILY prednisone 20 mg tablet Active ? Not avai lable TAKE 1 TABLET BY MOUTH 2 TIMES A DAY pregabalin 75 mg capsule Active ? Not lynnette ilable TAKE 1 CAPSULE BY MOUTH 3 TIMES A DAY Purelax 17 gram/dose oral powder Active ? Not available TAKE 4 CAPFULS (68 GRAMS) IN 32 OZ OF GATORADE AT 1PM THE DAY PRIOR TO SURGERY triamcinolone acetonide 0.1 % topical cream Active ? Not available APPLY TOPICALLY 2 TIMES DAILY NEEDED FOR ITCHING. Problems None recorded. Procedures Date Name Performed by ? 09/11/2020 XR, Kidney + Ureter + Bladder Informatio n not available 09/20/2020 CT, Urogram Information not avai lable 09/18/2021 NM, Kidney Scan, W/ Vascular Flow + Abbo tt [facility] (Radiology) Function, Single, [employer] [address] [place], [place] [address] (Work Place) Results Lab Results Date Name Specimen Result Interpretation Description Value Range Status Address ? 09/18/2021 Urinalysis, ? pH-Status 6.0 ? ? [facility]: [address] [place] [address] 09/18/2021 Urinalysis, ? No observation ? ? ? Dipstick recorded. Past Encounters 09/18/2021 Hydronephrosis Soren Crooks MD: [address], [address] [place] [phone], Ph. 10/29/2020 Hydronephrosis Soren Crooks MD: [address] [place] [address], Ph. Social History Tobacco Smoking Status Never Smoker Vaccine List None recorded. Plan of Care Reminders Provider Appointments None recorded. ? ? Lab None recorded. ? ? Referral None recorded. ? ? Procedures None recorded. ? ? Surgeries None recorded. ? ? Imaging None recorded. ? ? Vitals 09/18/2021 02:40PM ESTABLISHED 10 Height Weight BMI 5 ft 3 in 188 lbs 33.3 kg/m2 10/29/2020 11:20AM ESTABLISHED 10 Height Weight BMI 5 ft 3 in 188 lbs 33.3 kg/m2 09/11/2020 01:50PM ESTABLISHED 10 Height Weight BMI 5 ft 3 in 188 lbs 33.3 kg/m2
--- OUTSIDE RECORDS SUMMARY | 2022-03-28 12:47 | XMS_ITS | Encounter Summary ---
:1975 Author Organization [facility] Address [address] [place] [address] Care Team Providers Name Role Phone Golden Chowdary PA-C Unavailable [phone] Golden Chowdary PA-C Unavailable [phone] Reason for Visit Reason Comments New Patient Breast Problem Encounter Details Date Type Department Care Team Description 11/07/2015 Office Visit [facility] Golden Chowdary Breast lump (Primary Dx); Clinic [place] DAI Nesbitt Tick bite [place] [address] [facility], [address] [phone] (Wo rk) [address] [phone] Social History Tobacco Use Types Packs/Day Years Used Date Smoking Tobacco: Former Alcohol Use Standard Drinks/Week Comments Yes 0 (1 standard drink = 0.6 oz pure alcoho l) Sex Assigned at Date Recorded Not on file documented as of this encounter Last Filed Vital Signs Vital Sign Reading Time Taken Comments Blood Pressure 100/56 11/07/2015 3:18 PM CDT Pulse 72 11/07/2015 3:18 PM CDT Temperature 37.5 ??C (99.5 ??F) 11/07/2015 3:18 PM CDT Respiratory Rate 20 11/07/2015 3:18 PM CDT Oxygen Saturation - - Inhaled Oxygen Concentration - - Weight 72.1 kg (159 lb) 11/07/2015 3:18 PM CDT Height 159.4 cm (5' 2.75) 11/07/2015 3:18 PM CDT Body Mass Index 28.39 11/07/2015 3:18 PM CDT documented in this encounter Progress Notes Golden Chowdary PA-C - 11/07/2015 9:55 AM CDT HPI SUBJECTIVE: Alessandro Hill is a 40 year old female who presents to clinic today for the following health issues: BREAST LUMP/MASS ?? Duration: 2014 ?? Description (location/character/radiation): has had pain since May. Recently found lump on left breast ?? Intensity: mild, moderate ?? Accompanying signs and symptoms: pain is waking her up in the middle of the night, ?? History (similar episodes/previous evaluation): None ?? Precipitating or alleviating factors: None ?? Therapies tried and outcome: self breast exam, Alessandro is here as a new patient with breast pain and a lump that she has noticed over the past months. She has been watching it for several menstrual cycles but it has not gone away. It is painful. She has had similar fibrocystic changes in her breasts before. Waking at night when rolling over with pain. No discharge. Stopped caffeine. No FH breast cancer. Maybe menstrual correlation but can't tell for sure. PROBLEMS TO ADD ON... Noticed a possible tick bite on her leg. Did not see a tick but was in [place] at a cabin over [facility]. Concerned because the area is red. Problem list and histories reviewed & adjusted, as indicated. Additional history: as documented Problem list, Medication list, Allergies, and Medical/Social/Surgical histories reviewed in [facility] andupdated as appropriate. ROS: Constitutional, HEENT, cardiovascular, pulmonary, gi and gu systems are negative, except as otherwise noted. OBJECTIVE: BP 100/56 mmHg Pulse 72 Temp(Src) 99.5 ??F (37.5 ??C) (Oral) Resp 20 Ht 5' 2.75 (1.594 m) Wt 159 lb (72.122 kg) BMI 28.39 kg/m2 ? No Body mass index is 28.39 kg/(m^2). GENERAL: healthy, alert and no distress BREAST: no palpable axillary masses or adenopathy and fibrocystic changes both- left upper outer quad with possible large collection of fibrocystic changes appreciated MS: no gross musculoskeletal defects noted, no edema SKIN: no suspicious lesions or rashes and erythematous papule - left hip- consistent with insect bite, no evidence of central clearing or infection today PSYCH: mentation appears normal, affect normal/bright Diagnostic Test Results: none ASSESSMENT/PLAN: 1. Breast lump - MA Diagnostic Bilateral w/Jovan; Future 2. Tick bite - continue to observe for any signs of infection or redness becoming larger surrounding the insect bite. She will follow up if this occurs. Golden Chowdary PA-C [facility] Physical Exam documented in this encounter Nursing Notes Jailyn Gurrola MA - 11/07/2015 3:21 PM CDT Chief Complaint Patient presents with ??? New Patient ??? Breast Problem Initial BP 100/56 mmHg Pulse 72 Temp(Src) 99.5 ??F (37.5 ??C) (Oral) Resp 20 Ht 5' 2.75 (1.594 m) Wt 159 lb (72.122 kg) BMI 28.39 kg/m2 ? No Estimated body mass index is 28.39 kg/(m^2) as calculated from the following: Height as of this encounter: 5' 2.75 (1.594 m). Weight as of this encounter: 159 lb (72.122 kg). BP completed using cuff size: regular Jailyn Gurrola MA documented in this encounter Plan of Treatment Not on filedocumented as of this encounter Results MA Diagnostic Bilateral w/Jovan (11/12/2015 3:37 PM CDT) Anatomical Region Laterality Modality Breast Bilateral Mammography Specimen (Source) Anatomical Location Collection Method / Collectio n Time Received Time / Laterality Volume Addenda Addendum by Andrey Bergeron MD on 12/24/2015 7:21 AM CDT ALESSANDRO HILL [id number] The original report on this patient was dictated by myself. ?? Prior mammograms from [facility] dated 08/25/12 have been made available for comparison. Findings: No significant interval change on mammography. Subsequent biopsies were based on ultras ound findings. ANDREY BERGERON MD (Date of Addendum: 12/06:19 AM) ?? ANDREY BERGERON MD Addendum by Andrey Bergeron MD on 12/24/2015 7:21 AM T ALESSANDRO HILL [id number] The original report on this patient was dictated by myself. ?? Prior mammograms from [facility] dated 08/25/12 have been made available for comparison. Findings: No significant interval change on mammography. Subsequent biopsies were based on ultras ound findings. ANDREY BERGERON MD (Date of Addendum: 12/06 7:19 AM) ?? ANDREY BERGERON MD Addendum by Andrey Bergeron MD on 11/15/2015 3:36 PM T ALESSANDRO HILL [id number] The original report on this patient was dictated by myself. ?? Prior outside mammogram and right breast ultrasound from 08/25/2012 from [facility] have been made available for comparison. The [...] Andrey Bergeron MD on 11/15/2015 3:36 PM T ALESSANDRO HILL [id number] The original report on this patient was dictated by myself. ?? Prior outside mammogram and right breast ultrasound from 08/25/2012 from [facility] have been made available for comparison. The [...] approximately 6-7 months. COMPARISON: Prior mammograms at [place], [place], not available at the time of [...] this encounter Visit Diagnoses Diagnosis Breast lump - Primary Lump or mass in breast Tick bite Other, multiple, and unspecified sites, insect bite, nonvenomous, without mention of infection Breast lump Lump or mass in breast documented in this encounter Care Teams Sugar Trucker Relationship Specialty Start Date End Date Golden Chowdary PA-C PCP - Assigned PCP 5/12/16 3/5/19 [id number] EDGARD REDMOND, DOMINIC [phone] Golden Chowdary PA-C Assigned PCP 10/18/15 10/02/18 [id number] DOMINIC HUFFMAN [id number] documented as of this encounter
--- OUTSIDE RECORDS SUMMARY | 2022-03-28 12:47 | XMS_ITS | Encounter Summary ---
:1975 Author Organization [facility] Address [address] [place] [address]. [place] [address] Care Team Providers Name Role Phone Golden Chowdary PA-C Unavailable [phone] Golden Chowdary PA-C Unavailable [phone] Reason for Visit (Routine) - Closed Specialty Diagnoses / Procedures Referred By Contact Refer red To Contact Radiology / Radiology. Diagnoses post clip [facility] Procedures MA POST PROCEDURE LEFT [address], [address] [place] [address] Phone: Fax: Referral ID Status Reason Start Date Expiration Date Visits Requ ested Visits Authorized [id number] Closed 11/16/2015 11/15/2016 1 1 Encounter Details Date Type Department Care Team Description 11/21/2015 Hospital Encounter [facility] Golden Chowdary Mass of multiple [facility] sites of left breast Center [id number] [address], [address] [place], [place] [id number] Social History Tobacco Use Types Packs/Day Years Used Date Smoking Tobacco: Former Alcohol Use Standard Drinks/Week Comments Yes 0 (1 standard drink = 0.6 oz pure alcoho l) Sex Assigned at Date Recorded Not on file documented as of this encounter Plan of Treatment Not on filedocumented as of this encounter Procedures Procedure Name Priority Date/Time Associated Diagnosis Comme nts MA POST PROCEDURE Routine 11/21/2015 9:37 AM Mass of multiple Results for this LEFT CDT sites of left breast procedu re are in the results section. documented in this encounter Results MA Post Procedure Left (11/21/2015 9:37 AM CDT) Anatomical Region Laterality Modality Breast Left Mammography Specimen (Source) Anatomical Location Collection Method [...] MOISES HOGUE MD Golden Chowdary PA-C IMG MAMMOGRAPHY ORDERABLES documented in this encounter Visit Diagnoses Diagnosis Mass of multiple sites of left breast Lump or mass in breast documented in this encounter Care Teams Cfd Engineer Relationship Specialty Start Date End Date Golden Chowdary PA-C PCP - Assigned PCP 10/18/15 08/10/18 [id number] [address] [place] [id number] Golden Chowdary PA-C Assigned PCP 10/18/15 10/02/18 [id number] [place] [id number] documented as of this encounter
--- OUTSIDE RECORDS SUMMARY | 2022-03-28 12:47 | XMS_ITS | Continuity of Care Document ---
:1975 Author Organization [employer] Address [address] [place] [address] Insurance Providers Payer Plan Claims Claims Policy Group Relation Employer Guarantor Guarant or Guarantor Guarantor Address Phone Number Number Name Address Ph one BCBS BCBS [address] tel:[phone] Self Cassie Mejia 1975 [phone] [facility], [phone] [id number] BLUE BLUE [address] Carlitos Mejia 1975 [phone] [address], [facility], [phone] [facility] [address] [place] [address] Problems Condition ICD9 code ICD10 code SNOMED code Start Date End Date Status Encounter for Z13.228 screening for other metabolic disorders Encounter for Z12.31 Admitt ing screening mammogram for malignant neoplasm of breast Results Test Value / Unit Interpretation Reference Range Comp. Metabolic Panel (14)[[id number]]?Collected: 10/17/2021 06:53 PM?Specimen Received: 05:00 AM? Glucose [876945] 102 mg/dL H 65-99 mg/dL BUN [760927] 14 mg/dL Normal 6-24 mg/dL Creatinine [041989] 0.86 mg/dL Normal 0.57-1.00 mg /dL eGFR [216025] 85 mL/min/1.73 Normal >59 mL/min/1.73 BUN/Creatinine Ratio [677502] 16 Normal 9- 23 Sodium [923371] 140 mmol/L Normal 134-144 mmol/L Potassium [247287] 4.3 mmol/L Normal 3.5-5.2 mmol/ L Chloride [198027] 100 mmol/L Normal 96-106 mmol/L Carbon Dioxide, Total [580411] 23 mmol/L Normal 2 0-29 mmol/L Calcium [816975] 9.5 mg/dL Normal 8.7-10.2 mg/dL Protein, Total [799183] 7.1 g/dL Normal 6.0-8.5 g/dL Albumin [060321] 4.3 g/dL Normal 3.8-4.8 g/dL Globulin, Total [517983] 2.8 g/dL Normal 1.5-4.5 g/dL A/G Ratio [443270] 1.5 Normal 1.2-2.2 Bilirubin, Total [333056] 0.4 mg/dL Normal 0.0-1. 2 mg/dL Alkaline Phosphatase [056130] 85 IU/L Normal 44 -121 IU/L AST (SGOT) [208052] 18 IU/L Normal 0-40 IU/L ALT (SGPT) [491527] 16 IU/L Normal 0-32 IU/L Lipid Panel[082724]?Collected: 10/17/2021 06:53 PM?Specimen Received: 10/17/2021 05:00 AM? Cholesterol, Total [238269] 210 mg/dL H 100- 199 mg/dL Triglycerides [574810] 91 mg/dL Normal 0-149 mg/ dL HDL Cholesterol [666535] 60 mg/dL Normal >39 mg/ dL VLDL Cholesterol Liam [821282] 16 mg/dL Normal 5- 40 mg/dL LDL Chol Calc ([facility]) [507345] 134 mg/dL H 0-9 9 mg/dL Hemoglobin A1c[880114]?Collecte d: 10/17/2021 06:53 PM?Specimen Received: 10/17/2021 05:00 AM? Hemoglobin A1c [949698] 5.6 % Normal 4.8-5.6 % . Prediabetes: 5.7 - 6.4 Diabetes: >6.4 Glycemic control for adults with diabetes: 7.0 Allergies, adverse reactions, alerts No known allergies and adverse reactions Medications No administered medications reported Vital Signs No vital signs reported Social History No smoking Hx information available
--- OUTSIDE RECORDS SUMMARY | 2022-03-28 12:47 | XMS_ITS | Encounter Summary ---
:1975 Author Organization [facility] Address [address] [place] [address]. [place] [address] Care Team Providers Name Role Phone Golden Chowdary PA-C Unavailable [phone] Golden Chowdary PA-C Unavailable [phone] Reason for Visit (Routine) - Closed Specialty Diagnoses / Procedures Referred By Contact Refer red To Contact Radiology / Diagnoses Prev 11yrs ago [facility] Ultrasound Breast Radiology. Procedures US BREAST LT LMT 1-[address] QUAD [address], [address] [place] [address] Phone: Referral ID Status Reason Start Date Expiration Date Visits Requ ested Visits Authorized [id number] Closed 11/08/2015 11/07/2016 1 1 Encounter Details Date Type Department Care Team Description 11/12/2015 Hospital Encounter [facility] Golden Chowdary Breast lump [facility] DAI Nesbitt [address], [address] [facility] [address] [place] [address] [place], [place] [phone] (Wo rk) [address] [phone] Social History Tobacco Use Types Packs/Day Years Used Date Smoking Tobacco: Former Alcohol Use Standard Drinks/Week Comments Yes 0 (1 standard drink = 0.6 oz pure alcoho l) Sex Assigned at Date Recorded Not on file documented as of this encounter Plan of Treatment Not on filedocumented as of this encounter Procedures Procedure Name Priority Date/Time Associated Diagnosis Comme nts US BREAST BILATERAL Routine 11/12/2015 3:48 PM Breast lump Re sults for this LIMITED 1-3 CDT procedure are i n QUADRANTS the results section. documented in this encounter Results US Breast Bilateral Limited 1-3 Quadrants (11/12/2015 3:48 PM CDT) Anatomical Region Laterality Modality Breast Bilateral Ultrasound Specimen (Source) Anatomical Location Collection Method / Collectio n Time Received Time / Laterality Volume Addenda Addendum by Andrey Bergeron MD on 12/24/2015 7:21 AM CDT [facility] [id number] The original report on this patient was dictated by myself. ?? Prior mammograms from [facility] dated 08/25/12 have been made available for comparison. Findings: No significant interval change on mammography. Subsequent biopsies were based on ultras ound findings. ANDREY BERGERON MD (Date of Addendum: 12/06 7:19 AM) ?? ANDREY BERGERON MD Addendum by Andrey Bergeron MD on 12/24/2015 7:21 AM CDT ALESSANDRO H[facility] [id number] The original report on this patient was dictated by myself. ?? Prior mammograms from [facility] dated 08/25/12 have been made available for comparison. Findings: No significant interval change on mammography. Subsequent biopsies were based on ultras ound findings. ANDREY BERGERON MD (Date of Addendum: 12/06 7:19 AM) ?? ANDREY BERGERON MD Addendum by Andrey Bergeron MD on 11/15/2015 3:36 PM CDT [facility] [id number] The original report on this patient was dictated by myself. ?? Prior outside mammogram and right breast ultrasound from 08/25/2012 [facility] have been made available for comparison. [...] on 11/15/2015 3:36 PM CDT ALESSANDRO H[facility] [id number] The original report on this patient was dictated by myself. ?? Prior outside mammogram and right breast ultrasound from 08/25/2012 from [facility] have been made available for comparison. [...] approximately 6-7 months. COMPARISON: Prior mammograms at [place], [place], not available at the time of [...] all three lesions. Golden Chowdary PA-C IMG US ORDERABLES documented in this encounter Visit Diagnoses Diagnosis Breast lump Lump or mass in breast documented in this encounter Care Teams Internist Medical Doctor Md Relationship Specialty Start Date End Date Golden Chowdary PA-C PCP - Assigned PCP 10/18/15 08/10/18 [id number] DOMINIC HUFFMAN [id number] Golden Chowdary PA-C Assigned PCP 10/18/15 10/02/18 22235 DOMINIC HUFFMAN [id number] documented as of this encounter
--- NOTE | 2022-03-28 13:00 | CRLHL7_ITS ---
For Patients: As a result of the Century Cures Act, medical imaging exams and procedure reports are released immediately into your electronic medical record. You may view this report before your referring provider. If you have questions, please contact your health care provider. BILATERAL SCREENING MAMMOGRAM WITH COMPUTER-AIDED DETECTION AND TOMOSYNTHESIS TECHNIQUE: CC and MLO views were obtained. These mammographic images have been obtained using full-field digital technique. These mammographic images were interpreted with the benefit of computer-aided detection. Breast Tomosynthesis was used in this interpretation. COMPARISON FILM: 07/24/20, 11/25/18, 11/12/15. FINDINGS: The breasts are heterogeneously dense, which may obscure small masses IMPRESSION: There is no radiographic evidence for malignancy. ASSESSMENT: BI-RADS Category 2: Benign RECOMMENDATION: Routine screening mammogram in 1 year. A lay language report of this examination will be provided to the patient. Donovan Doty M.D. Diagnostic Radiologist [email or web address] DEUCE/Dictated by: Donovan Doty MD @ 03/31/2022 8:43:00 AM (Electronically Signed)
== END 2022-03-28 12:45 | disposition home or self-care (01) ==
LOC: MAMMO 12:45
PROVIDERS: PCP Physician Assistant Medical; Visit Provider Physician Assistant Medical
DX: Z12.31 Encounter for screening mammogram for malignant neoplasm of breast (principal); R92.2 Inconclusive mammogram
CPT/HCPCS: 77063; 77067